=== PATIENT | male | born 2000 | race African-American/Black ===

== ENCOUNTER 2021-05-19 13:29 | Emergency (ER) | payer OTHER, SELFPAY ==
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
[2021-05-19 13:40] VITALS: BP 140/81; PULSE 86; RESP 20; TEMP 36.6; O2SAT 99
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
== END 2021-05-19 18:01 | disposition home or self-care (01) ==
PROVIDERS: Emergency Provider Nurse Practitioner
DX: S01.81XA Laceration without foreign body of other part of head, initial encounter (principal); Y04.2XXA Assault by strike against or bumped into by another person, initial encounter
CPT/HCPCS: 12011; 73130; 99283